=== PATIENT | female | born 1935 | race Caucasian/White ===

== ENCOUNTER 2018-03-03 14:21 | Inpatient (IN) ==
[2018-03-03] MEDS ORDERED: Sodium Chloride 0.9% 1,000 ML PRIMARY IV ONE (15:06)
[2018-03-03] MEDS ORDERED: ONDANSETRON 4 MG/2 ML VIAL IVP ONE (15:06)
[2018-03-03 16:41] LABS: BASOPHILS # (AUTO) 0.02 10*3/UL; BASOPHILS % (AUTO) 0.1 % (0-1); EOSINOPHILS # (AUTO) 0.01 10*3/UL; EOSINOPHILS % (AUTO) 0.1 % (0-8); Hematocrit [HCT] 44.3 % (37.0-47.0); Hemoglobin [HGB] 14.8 g/dL (12.0-16.0); LYMPHOCYTES # (AUTO) 1.36 10*3/uL; MEAN CORPUSCULAR HEMOGLOBIN 31.3 PG (27-31); MEAN CORPUSCULAR HGB CONC 33.4 g/dL (33-37); MEAN CORPUSCULAR VOLUME 93.7 FL (81-99); MEAN PLATELET VOLUME 12.1 FL (7.4-12.2); MONOCYTES # (AUTO) 0.42 10*3/UL (0.3-0.8); MONOCYTES % (AUTO) 3.1 % (5-15); NEUTROPHILS # (AUTO) 11.61 10*3/UL; NEUTROPHILS % (AUTO) 86.4 % (50-80); RED BLOOD COUNT 4.73 10^6/uL (4.20-5.40)
[2018-03-03 16:49] LABS: PLATELET MORPHOLOGY COMMENT NORMAL MORPHOLOGY (NORM); RBC MORPHOLOGY COMMENT NORMAL MORPHOLOGY (NORM); WBC MORPHOLOGY COMMENT NORMAL MORPHOLOGY (NORM)
[2018-03-03 16:50] LABS: BLOOD UREA NITROGEN 13 mg/dL (7-22)
[2018-03-03 17:28] LABS: BILIRUBIN,URINE NEGATIVE (NEG); CLARITY,URINE Slightly Cloudy (CLEAR); COLOR,URINE YELLOW (Y); GLUCOSE, URINE (UA) NEGATIVE (NEG); OCCULT BLOOD,URINE SMALL (NEG); PH,URINE 5.5 (5.0-8.5); PROTEIN,URINE 100 mg/dl (NEG); UROBILINOGEN,URINE 0.2 EU/dL (0.2)
[2018-03-03 17:31] LABS: BACTERIA,URINE MANY; SQUAMOUS EPITHELIAL CELL,UR FEW; URINE SAMPLE TYPE CATH SPECIMEN; WBC,URINE 25-50
--- NOTE | 2018-03-03 19:54 | PDOC ---
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 She said she started to take the pain medication and she vomited multiple times today and she is feeling nauseated because of that came into the ER. In the ER her white count was elevated there was some abnormal UA. She was given some fluid and was admitted. She rates her pain maybe 7 out of 10 right now. There is no radiation. There is no sensory changes. She said her pain is worse when she moves. No problems controlling her bowel or bladder Past Medical History Medical History: 1. Hypertension. 2. Hypothyroidism. 3. History of hysterectomy had cancer but was contained 25 years ago. Surgical History: 1. History of hysterectomy. 2. History of cholecystectomy Past Social History: She does not smoke , occasionaly drinks and no drugs she is from [facility] visiting her. Tobacco Use: Never Smoker In the Past 12 Months, Have Used or Abuse Any of the Following Substance: None Alcohol Use: Occasionally Medication / Allergies Home Medications: Home Medications 3 Medication Instructions Recorded Confirmed Type NK 03/03/18 03/03/18 History Allergies/Adverse Reactions: Allergies 3 Allergy/AdvReac Type Severity Reaction Status Date / Time codeine Allergy VOMITING Verified 03/04/18 06:19 Review of Systems - Review of Systems All Systems: Reviewed & No Additional Complaints Except as Stated Exam - Vitals Vital Signs: Vital Signs Temperature 97.9 F Temperature Source Temporal Artery Scan Pulse Rate [Pulse Oximeter 68 Bilateral Radial] Respiratory Rate 18 Blood Pressure [Left Arm] 167/82 Pulse Ox 82 Oxygen Delivery Method Room Air Height 4 ft 11 in Weight 150 lb - General General Appearance: No Acute Distress, Cooperative - Head Head Exam: Normal Inspection - Eye Eye Exam: POSITIVE: Normal Appearance - ENT ENT Exam: POSITIVE: Normal Exam - Neck Neck Exam: Normal Inspection - Respiratory Respiratory Exam: POSITIVE: Clear to Auscultation - Bilaterally - Cardiovascular Cardiovascular Exam: POSITIVE: RRR - GI/Abdominal GI/Abdominal Exam: POSITIVE: Normal Bowel Sounds, Non Tender, Non Distended, Soft, No Organomegaly - Rectal Rectal Exam: POSITIVE: Deferred - External Exam: POSITIVE: Deferred Exam: POSITIVE: Deferred - Extremities Extremities Exam: POSITIVE: Normal Inspection - Back Back Exam: POSITIVE: Normal Inspection - Neurological Neurological Exam: POSITIVE: Alert, Oriented x 3, Reflexes Normal, CN II-XII Intact, No Facial Droop, Speech Intact / Clear, Moves All Extremities Equally, No Fasciculations, No Clonus - Psychiatric Psychiatric Exam: POSITIVE: Normal Affect - Integumentary Integumentary Exam: POSITIVE: Normal Color Results - Labs CBC and BMP: 03/04/18 06:56 03/03/18 16:20 - Imaging Status: Report Reviewed by Me (Compression fracture of L1, osteoporosis noted.) Assessment and Plan - Patient Problems (1) Compression fracture Current Visit: No Status: Inactive Comment: Did tell her we'll try some Motrin and Tylenol. Did write for tramadol and see whether that would help her symptoms without causing nausea. (2) Nausea and vomiting Current Visit: Yes Status: Acute Comment: Probably medication related, she has also UTI. We'll try to treat her symptomatically in addition to treating the UTI. Code(s): R11.2 - Nausea with vomiting, unspecified (3) Abnormal finding on urinalysis Current Visit: Yes Status: Acute Comment: Possible urinary tract infection will cover with antibiotics for now. Code(s): R82.90 - Unspecified abnormal findings in urine (4) Hypertension Current Visit: Yes Status: Acute Comment: She doesn't know what blood pressure medication she is on we'll try to figure out the morning. Code(s): I10 - Essential (primary) hypertension
[2018-03-03] MEDS ORDERED: LIDOCAINE W/ SODIUM BICARB 0.5 ML SYR SUBD PRN (20:25)
[2018-03-03] MEDS ORDERED: ONDANSETRON 4 MG/2 ML VIAL IVP PRN (20:25)
[2018-03-03] MEDS ORDERED: IBUPROFEN 400 MG TABLET PO PRN (20:26)
[2018-03-03] MEDS ORDERED: traMADol 50 MG TABLET PO PRN (20:27)
[2018-03-03] MEDS ORDERED: Acetaminophen 1000mg Inj 1,000 MG/100 ML VIAL IV PRN (20:27)
[2018-03-03] MEDS ORDERED: LIDOCAINE 700 MG PATCH TOPICAL ONE (20:28)
[2018-03-03] MEDS ORDERED: Lactated Ringers 1,000 ML PRIMARY IV SCH (20:30)
[2018-03-03] MEDS ORDERED: cefTRIAXone Inj 1 GM in Sodium Chloride 0.9% 100 ML IV SCH (20:45)
--- NOTE | 2018-03-03 22:11 | PDOC ---
General Adult HPI - General Chief Complaint: Nausea / Vomiting / Diarrhea Stated Complaint: nausea, vomiting, back pain Date Seen by Provider: 03/03/18 Time Seen by Provider: 14:55 Source: POSITIVE: Patient, Spouse, Other (daughter) Exam Limitations: POSITIVE: No limitations Nurse's Notes Reviewed & Considered: Yes - History of Present Illness Initial Comment: The patient is an 83-year-old female. Patient was seen in the emergency room last night with mid back pain. At that time she related that she was playing a sawant bag tossed game with some other elderly people and as she was doing so she experienced abrupt onset of pain in her mid back. When seen in the emergency room at that time x-rays revealed an acute 20% compression fracture of L1. She was prescribed hydrocodone and Zanaflex for her back pain. She states that since this morning she's had some nausea and vomiting. She states she vomited 3 or 4 times today. No diarrhea. She states that her "stomach feels bloated and that she is sick to her stomach". She complains of mid back pain with movement. 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 Patient denies any abdominal pain at this time. No diarrhea. No melena, hematochezia, hematemesis, dysuria, hematuria or fevers. Have you received a tetanus shot in the past 10 years?: No Body Location Affected: REPORTS: Abdomen (Nausea and vomiting), Back (Pain from recent L1 compression fracture) Timing: REPORTS: Constant, Gradual Duration: <24 hours Severity: Moderate Quality: REPORTS: "Pain" (Mid back pain as above) Context: REPORTS: Recent Trauma (As above) Modifying Factors: improves with: Vomiting, Movement Similar Symptoms Previously: No Recent Care Received: REPORTS: Recently Seen, Treated by MD (As above) Any Prior Injuries Related to Current Complaint?: No - Patient Home Medications Home Medications: Home Medications NK 03/03/18 - Patient Allergies Allergies/Adverse Reactions: Allergies 3 Allergy/AdvReac Type Severity Reaction Status Date / Time codeine Allergy VOMITING Verified 03/03/18 00:31 Past Medical History - mary anne BERMAN History: Denies History Cardiovascular History: Denies History Respiratory History: Denies History Gastrointestinal History: Denies History Genitourinary History: Denies History Endocrine History: Hypothyroidism Musculoskeletal History: Denies History Neurological History: Denies History Blood Disorders: Denies History Psychiatric History: Denies History History of Sexually Transmitted Diseases: No Female Reproductive History: Hysterectomy, Other (please comment) Additional Female Reproductive History: Cancerous Ovarian Tumor removed in 1993. Full Hysterectomy in 1993 LMP: 1993 Cancer History: Other (please comment) In Past Year Been Physically Harmed or Verbally Threatened: No History of MDRO: No History of Other Communicable Diseases: No Tobacco Use: Never Smoker In the Past 12 Months, Have Used or Abuse Any Substance: None Previous Surgical History: Yes Type / Date of Surgery: HYSTERECTOMY, BILATERAL OOPHERECTOMY, MICAH Anesthesia Reactions: No Malignant Hyperthermia: No Significant Family History: No pertinent family hx Past Medical History Reviewed: Reviewed - No Changes ROS - Limitations ROS Limitations: No Limitations Constitution: REPORTS: Denies Symptoms Cardiovascular: REPORTS: Denies Cardiac Symptoms Respiratory: REPORTS: Denies Resp Symptoms Neurological: REPORTS: Denies Neuro Symptoms Gastrointestinal: REPORTS: Nausea, Vomitting Endocrine: REPORTS: Denies Symptoms Musculoskeletal: REPORTS: Back Pain (As above) Genitourinary: REPORTS: Denies Symptoms Eyes: REPORTS: Denies Symptoms ENT: REPORTS: Denies Symptoms Skin: REPORTS: Denies Skin Symptoms Lympathic: REPORTS: Denies Lympathic Symptoms Immunologic: POSITIVE: Denies Symptoms Psychiatric: POSITIVE: Denies Psych Symptoms General Adult Exam - General Appearance General Appearance: POSITIVE: Alert, Cooperative, No Acute Distress. NEGATIVE: No Evidence of Trauma (Pain on percussion L1) - HEENT HEENT: POSITIVE: Head Inspection Nml, Eyes Inspection Nml, Ears Inspection Nml, Nose Inspection Nml, Oral/Dental Inspect. Nml, Pharynx Inspect. Nml, PERRL, EOMI - Pupils Pupil Size: 3 mm: Bilateral - Neck Neck: POSITIVE: Normal Inspection, Thyroid Normal - Respiratory Respiratory: POSITIVE: No Respiratory Distress, Breath Sounds Normal, Chest Non- Tender - Cardiovascular Cardiovascular: POSITIVE: Regular Rate & Rhythm, No Murmur, No Gallop, PMI Normal Peripheral Pulses: Radial (R): 2+, Radial (L): 2+ - Abdomen Abdomen: Soft: (All Quadrants), Normal Bowel Sounds: (All Quadrants), Denies Tenderness: (All Quadrants), No Splenomegaly: (All Quadrants), No Hepatomegaly: (All Quadrants), No Guarding: (All Quadrants), No Rebound: (All Quadrants), No Palpable Pulse: (All Quadrants), No Palpabale Mass: (All Quadrants), No Distention: (All Quadrants), No Rigidity: (All Quadrants) - Back Back: POSITIVE: Lumbosacral Tenderness (Some pain on percussion over L1, site of recent compression fracture). NEGATIVE: Normal Inspection, CVA Tenderness, Thoracic Tenderness - Skin Skin: POSITIVE: Normal Color, Warm, Dry, No Rash - Extremities Extremity: Non-Tender: (All Extremities), Normal ROM: (All Extremities), Normal Inspection: (All Extremities) - Neurological / Psychological Neurological: POSITIVE: Affect Apporpriate, Oriented X3, leveler helper Normal As Tested, Motor Normal, Sensation Normal Images - Complete Complete: 1 - Discomfort on movement and on palpation General Adult Progress - Results Reviewed by me Xrays/CTs/US Reviewed by me: Yes Discussed with Radiologist: Yes Radiology Findings: X-ray of lumbosacral spine taken yesterday shows approximately 20% fracture, compression, L1, read by radiologist as probably being acute Lab Results Reviewed by Me: Yes (catheter urinalysis compatible with urinary tract infection) Lab Results:: Laboratory Results 3 03/03/18 03/03/18 03/03/18 16:20 16:20 17:00 WBC 13.45 H RBC 4.73 Hgb 14.8 Hct 44.3 MCV 93.7 MCH 31.3 H MCHC 33.4 RDW Std Deviation 42.3 RDW Coeff of Rosalind 12.6 Plt Count 209 MPV 12.1 Immature Gran % (Auto) 0.2 Neut % (Auto) 86.4 H Lymph % (Auto) 10.1 Mcleod % (Auto) 3.1 L Eos % (Auto) 0.1 Baso % (Auto) 0.1 Immature Gran # (Auto) 0.03 Neut # (Auto) 11.61 Lymph # (Auto) 1.36 Mcleod # (Auto) 0.42 Eos # (Auto) 0.01 Baso # (Auto) 0.02 WBC Morphology Comment Normal morphology Plt Morphology Comment Normal morphology RBC Morph Comment Normal morphology Sodium 135 Potassium 4.3 Chloride 100 Carbon Dioxide 23 Anion Gap 12 BUN 13 Creatinine 0.5 BUN/Creatinine Ratio 26.00 H Glucose 123 H Calculated Osmolality 280.0 Calcium 9.0 Total Bilirubin 0.5 AST 25 ALT 31 Alkaline Phosphatase 55 Total Protein 6.8 Albumin 4.0 Globulin 2.8 Albumin/Globulin Ratio 1.40 Ur Collection Type Cath specimen Urine Color Yellow Urine Clarity Slightly cloudy Urine pH 5.5 Ur Specific [place] 1.025 Urine Protein 100 A Urine Glucose (UA) Negative Urine Ketones Trace A Urine Occult Blood Small H Urine Nitrate Negative Urine Bilirubin Negative Urine Urobilinogen 0.2 Ur Leukocyte Esterase Trace Urine RBC 10-20 Urine WBC 25-50 Ur Squamous Epith Cells Few Ur Renal Epithelial Cell None Urine Crystals None Urine Bacteria Many H Urine Casts None Urine Mucus None Urine Trichomonas None Urine Yeast None Ur Culture Indicated? Culture set CBC and BMP: 03/03/18 16:20 03/03/18 16:20 - Patient's Progress Pain Medication Addressed: POSITIVE: Yes School/Work Release Addressed: POSITIVE: Not Applicable Re-Examine Time: 18:30 Re-Examine Comment: Options of treatment discussed with patient and family. Patient has not had any vomiting while in the emergency room but still complains of feeling quite nauseated. She states she has considerable back pain with movement. Outpatient versus inpatient treatments discussed. Patient initially opted for outpatient treatment, but then changed her mind stating that she is fearful that she'll not be able to care for herself as she presently feels. Case discussed with hospitalist and the patient admitted at 1934. Status: POSITIVE: Unchanged, Re-Examined Antibiotics Given: No - Consult Consult (If Yes, Name of Consulting MD & Time Called): Yes (Dr. Dowd, hospitalist, 1933) Consulting MD will see pt:: POSITIVE: [facility] Admit Counseled: POSITIVE: Patient, Family, RE: Lab Results, RE: Radiology Results, RE : DX, RE: Need for F/U Patient Care Time - Estimated PCT Patient Care Time (In Minutes): 65 Vital Signs - Recent Vital Signs Vital Signs: Vital Signs (Last 8 hours) Temp Pulse Pulse Resp BP BP Pulse Ox 03/03/18 20:28 97 F 72 22 192/92 93 03/03/18 20:05 20 03/03/18 20:00 97.9 F 77 18 167/82 92 03/03/18 19:09 97.9 F 18 167/82 82 03/03/18 14:59 97.6 F 68 16 192/78 86 - VS Reviewed Vital Signs Reviewed: Yes Discharge Clinical Impression: Nausea and vomiting, Urinary tract infection, Lumbar compression fracture Discharge Disposition: Admit to Inpatient Condition: Fair Date Decision to Admit to Inpatient: 03/03/18 Time Decision to Admit to Inpatient: 18:30
[2018-03-04 00:32] VITALS: RESP 20
[2018-03-04 03:52] VITALS: TEMP 98.9
[2018-03-04 06:34] VITALS: BP 179/66; O2SAT 91
[2018-03-04 07:16] LABS: BASOPHILS # (AUTO) 0.02 10*3/UL; BASOPHILS % (AUTO) 0.1 % (0-1); EOSINOPHILS # (AUTO) 0.04 10*3/UL; EOSINOPHILS % (AUTO) 0.3 % (0-8); Hematocrit [HCT] 43.6 % (37.0-47.0); LYMPHOCYTES # (AUTO) 2.17 10*3/uL; MEAN CORPUSCULAR HEMOGLOBIN 31.8 PG (27-31); MEAN CORPUSCULAR HGB CONC 34.4 g/dL (33-37); MEAN CORPUSCULAR VOLUME 92.4 FL (81-99); MEAN PLATELET VOLUME 12.3 FL (7.4-12.2); MONOCYTES # (AUTO) 0.99 10*3/UL (0.3-0.8); MONOCYTES % (AUTO) 7.2 % (5-15); NEUTROPHILS # (AUTO) 10.52 10*3/UL; NEUTROPHILS % (AUTO) 76.3 % (50-80); RED BLOOD COUNT 4.72 10^6/uL (4.20-5.40)
[2018-03-04 07:29] LABS: PLATELET MORPHOLOGY COMMENT NORMAL MORPHOLOGY (NORM); RBC MORPHOLOGY COMMENT NORMAL MORPHOLOGY (NORM); WBC MORPHOLOGY COMMENT NORMAL MORPHOLOGY (NORM)
[2018-03-04] MEDS ORDERED: KETOROLAC 15 MG/1 ML VIAL IVP PRN (09:14)
--- NOTE | 2018-03-04 09:41 | DCSUMMARY ---
Hospitalization Summary Admit Date: 03/03/2018 Discharge Date: 03/04/18 Hospital Course: Transfer diagnoses 1. L1 compression fracture 2. Abnormal UA possible urinary tract infection 3. Persistent nausea 4. Hypoxia, may be secondary to the medication 5. History of hypertension 6. History of hysterectomy, found to have contained cancer according to her 7. Hypothyroidism Hospital course This is an 83 years old female with medical history significant for history of hypertension, hypothyroidism and previous history of hysterectomy discovered that she had contained cancer according to her. She is from [place] she came in on Wednesday she said she was playing throwing sawant bags on Wednesday and she felt a pop in her back and complained from pain in the lower back that persisted on Wednesday she came into the ER and x-ray showed compression fracture of L1 was given pain medication and discharged. She said she started to take the pain medication,that was hydrocodone, and she vomited multiple times. she had persistent nausea and because of that came into the ER. [place] [address] there was some abnormal UA. She was given fluids and was admitted. Her pain when I saw her was 7 out of 10. There was no radiation no sensory changes and no focal finding on exam. We put on IV Tylenol, Toradol and tramadol. Also antiemetics and Lidoderm patch. She was giving a dose of Rocephin and contained with IV fluid. She continued to complain today from persistent nausea and pain rating her pain maybe 5 out of 10 worse with movement. She didn't eat much. Family requesting transfer. I did speak with Dr. Barron the hospitalist at [facility] he accepted the patient. We discussed about maybe also discussing with neurosurgery and the transfer center left a message to him. The patient and family were aware of the possibility of them paying for the ambulance ride, they did not want to wait to here from the neurosurgery to see if they think they can provide something that we cannot provide here. They requested the transfer still. Abnormal Lab Results (Last 24 Hours) Range/Units 03/03/18 03/03/18 03/03/18 16:20 16:20 17:00 WBC (4.8-10.8) 10^3/uL 13.45 H MCH (27-31) PG 31.3 H MPV (7.4-12.2) FL Neut % (Auto) (50-80) % 86.4 H Hendricks % (Auto) (5-15) % 3.1 L Hendricks # (Auto) (0.3-0.8) 10*3/UL BUN/Creatinine Ratio (6-20) 26.00 H Glucose (78-110) mg/dL 123 H Urine Protein (NEG) mg/dl 100 A Urine Ketones (NEG) Trace A Urine Occult Blood (NEG) Small H Urine Bacteria (NONE) Many H Range/Units 03/04/18 06:56 WBC (4.8-10.8) 10^3/uL 13.80 H MCH (27-31) PG 31.8 H MPV (7.4-12.2) FL 12.3 H Neut % (Auto) (50-80) % Hendricks % (Auto) (5-15) % Hendricks # (Auto) (0.3-0.8) 10*3/UL 0.99 H BUN/Creatinine Ratio (6-20) Glucose (78-110) mg/dL Urine Protein (NEG) mg/dl Urine Ketones (NEG) Urine Occult Blood (NEG) Urine Bacteria (NONE) Transfer diagnoses Diet regular Activity as started Medications Active Medications Acetaminophen (Ofirmev 1000mg Inj) 1,000 mg in 100 mls @ 400 mls/hr IV Q8H PRN PRN Reason: Pain Last Admin: 03/04/18 03:22 Dose: 400 mls/hr Lactated Ringer's (Lr) 1,000 mls @ 75 mls/hr PRIMARY IV .[id number] [facility] Last Admin: 03/03/18 20:51 Dose: 100 mls/hr Ceftriaxone Sodium 1 gm/ (Sodium Chloride) 100 mls @ 200 mls/hr IV Q24H JERRY Last Admin: 03/03/18 20:51 Dose: 200 mls/hr Ketorolac Tromethamine (Toradol Inj) 15 mg IVP Q6H PRN PRN Reason: Pain Lidocaine HCl (Lidocaine Buffered Inj) 0.5 ml SUBD ONCE PRN PRN Reason: IV Starts Ondansetron HCl (Zofran Inj) 4 mg IVP Q4H PRN PRN Reason: NAUSEA / VOMITING Tramadol HCl (Ultram) 50 mg PO Q6H PRN PRN Reason: Pain Last Admin: 03/03/18 20:50 Dose: 50 mg Follow-up per [facility] post discharge Condition at transfer was stable for transfer Exam - Vitals Vital Signs: Vital Signs Temperature 98.9 F Temperature Source Temporal Artery Scan Pulse Rate [Pulse Oximeter 75 Bilateral Radial] Pulse Rate 77 Respiratory Rate 20 Blood Pressure [Left Arm] 179/66 Blood Pressure 167/82 Pulse Ox 91 Oxygen Flow Rate 1 Oxygen Delivery Method Nasal Cannula Height 4 ft 11 in Weight 166 lb 3.2 oz - General Additional General Exam Details: Looks tired - Head Head Exam: Normal Inspection - Eye Eye Exam: POSITIVE: Normal Appearance - Neck Neck Exam: Normal Inspection - Respiratory Additional Respiratory Exam Details: Few crackles at the bases - Cardiovascular Cardiovascular Exam: POSITIVE: RRR - GI/Abdominal GI/Abdominal Exam: POSITIVE: Normal Bowel Sounds, Non Tender, Non Distended, Soft, No Organomegaly - Rectal Rectal Exam: POSITIVE: Deferred - External Exam: POSITIVE: Deferred - Extremities Extremities Exam: POSITIVE: Normal Inspection - Back Back Exam: POSITIVE: Normal Inspection - Neurological Neurological Exam: POSITIVE: Alert, Oriented x 3, CN II-XII Intact, Moves All Extremities Equally - Psychiatric Psychiatric Exam: POSITIVE: Flat Affect - Integumentary Integumentary Exam: POSITIVE: Normal Color Patient Problems - Patient Problem List (1) Compression fracture Current Visit: No Status: Inactive Category: Medical (2) Nausea and vomiting Current Visit: Yes Status: Acute Code(s): R11.2 - Nausea with vomiting, unspecified Category: Medical (3) Abnormal finding on urinalysis Current Visit: Yes Status: Acute Code(s): R82.90 - Unspecified abnormal findings in urine Category: Medical (4) Hypertension Current Visit: Yes Status: Acute Code(s): I10 - Essential (primary) hypertension Category: Medical
== END 2018-03-04 11:49 | disposition short-term general hospital (02) | DRG 543 ==
LOC: ER 14:21 → MED/SURG 19:37
PROVIDERS: ADMIT Internal Medicine; ATTEND Internal Medicine